=== PATIENT | male | born 1985 | race Caucasian/White ===

== ENCOUNTER 2018-07-13 02:12 | Emergency (ER) | payer OTHER | END 2018-07-13 03:51 | disposition left against medical advice (07) | LOC: M ED 02:12 | DX: K42.9 Umbilical hernia without obstruction or gangrene (principal) | CPT/HCPCS: 99282 ==

== ENCOUNTER 2018-08-24 14:49 | Emergency (ER) | payer OTHER | END 2018-08-24 16:02 | disposition home or self-care (01) | LOC: M ED 14:49 | DX: K04.7 Periapical abscess without sinus (principal); Z87.820 Personal history of traumatic brain injury; F43.10 Post-traumatic stress disorder, unspecified; Z79.899 Other long term (current) drug therapy; Z91.89 Other specified personal risk factors, not elsewhere classified | CPT/HCPCS: 99282 ==

== ENCOUNTER → 2024-09-30 | Outpatient (CLI) | payer OTHER ==
[~2024-09-30] MED LIST: FIOR1CAP PO; GABA-1171 PO; IBUP-1022 PO; PENI500T PO
== END ==
LOC: M RAD 07:02
PROVIDERS: ATTEND Internal Medicine
DX: R74.01 Elevation of levels of liver transaminase levels (principal); R16.0 Hepatomegaly, not elsewhere classified